=== PATIENT | male | born 1955 | race Caucasian/White ===

== ENCOUNTER 2023-09-30 11:02 | Day surgery (SDC) | payer MEDICARE ==
[~2023-09-30] VITALS: Ht 172.7 cm; Wt 77.3 kg
[~2023-09-30 11:02] MED LIST: ASPIR 8181 MG PO; ASPIRIN EC325 MG PO; ASPIRIN81 MG PO; ATORVASTATIN CA10 MG PO; CELECOXIB200 MG PO; CIALIS5 MG PO; CO Q-10 100 MG1 EACH PO; CO Q-1010 MG PO; DILTIAZEM 24HR120 MG PO; ELIQUIS5 MG PO; FLOMAX0.4 MG PO; GABAPENTIN600 MG PO; HEALTHYLAX17 GM PO; MULTIVITAMIN W1 EACH PO; OXYCODONE HCL5 MG PO; SENNA LAX8.6 MG PO; SILDENAFIL20 MG PO; TAMSULOSIN HCL0.4 MG PO; TOPROL XL50 MG PO; TYLENOL EXTRA500 MG PO
[2023-09-30 11:20] VITALS: BP 134/76
--- NOTE | 2023-09-30 13:42 | NUR ---
09/30/23 1342 Sheets,Allison 1306 PT ARRIVED TO PACU ON 3L VIA MASK. PT AWAKE AND TALKING TO RN. VSS. 1312 MD AT BEDSIDE TALKING TO PT. 1316 O2 REMOVED. PT DROWSY AND DENIES COCNERNS. 1325 PT ASLEEP AND O2 90%.
[2023-09-30 13:45] VITALS: BP 106/74
--- NOTE | 2023-10-01 16:28 | OR ---
[facility] [address], [place] [address] Signed DATE OF OPERATION: 09/30/2023 SURGEON: Ewelina Segal MD PREOPERATIVE DIAGNOSES: 1. Colon screening. 2. Family history of colon cancer (mother). POSTOPERATIVE DIAGNOSIS: Normal colon to cecum. PROCEDURE: Total colonoscopy to cecum. ANESTHESIA: Intravenous sedation fentanyl 100 mcg and Versed 5 mg. INDICATION: This 68-year-old white man is patient of Dr. Ole Palomo as well as HILLARY Arora. He underwent colonoscopy in 5 years ago in 2018, which was normal. He has family history of colon cancer in his mother. He currently has no symptoms of bleeding, diarrhea or constipation. He does take Eliquis for history of atrial fibrillation, having undergone atrial ablation. He is admitted to undergo surveillance colonoscopy at this time. He understands the risk of bleeding, infection, and perforation. FINDINGS: The prep was excellent. Complete colonoscopy was undertaken to the cecum without question. He had no evidence of polyps, diverticular formation, colitis, or cancer. PROCEDURE IN DETAIL: The patient was brought to the endoscopy suite and placed in lateral decubitus position, given intravenous sedation to the point of slurred speech and nystagmus. Digital rectal examination was normal. An Olympus video colonoscope was passed in the rectum and manipulated throughout the colon ultimately intubating the cecum itself. The ileocecal valve and appendiceal orifice were normal. Scope was withdrawn from that point and examination throughout showed no sign of abnormality specifically no polyps, diverticular formation, colitis, or cancer. Retroflexed view of the rectum was normal as well. The scope was removed Electronically Signed By: EWELINA SEGAL MD 10/01/23 1628 PATIENT NAME: MATTHEW PALOMO OPERATIVE REPORT DATE OF : 57 REPORT #: [id number] PHYSICIAN: EWELINA SEGAL MD PCP: OLE PALOMO MD REPORT IS CONFIDENTIAL AND NOT TO BE RELEASED WITHOUT AUTHORIZATION [facility] [address], [place] [address] Signed and the patient was taken to the recovery room in good condition. CONCLUDING DIAGNOSIS: Normal colon to cecum. PLAN: Recommend repeat colonoscopy in 5 years based on family history of colon cancer in his mother, sooner if symptoms should develop. He will return to the ongoing care of Dr. Ole Palomo and HILLARY Arora. MD BERENICE Hinds/MODL /[id number] cc: MD Hemalatha Wynne PA Copies: OLE PALOMO DMD ~ Electronically Signed By: EWELINA SEGAL MD 10/01/23 1628 PATIENT NAME: MATTHEW PALOMO OPERATIVE REPORT DATE OF : 57 REPORT #: [id number] PHYSICIAN: EWELINA SEGAL MD PCP: OLE PALOMO MD REPORT IS CONFIDENTIAL AND NOT TO BE RELEASED WITHOUT AUTHORIZATION
== END 2023-09-30 13:57 | disposition home or self-care (01) ==
LOC: DS 11:02 → OPS 11:02 → DS 13:00 → OPS 13:00
PROVIDERS: ATTEND Surgery
PROC: 0DJD8ZZ Inspection of Lower Intestinal Tract, Via Natural or Artificial Opening Endoscopic (ICD-10-PCS; principal; 2023-09-30 11:45)
DX: Z12.11 Encounter for screening for malignant neoplasm of colon (principal); Z80.0 Family history of malignant neoplasm of digestive organs; I48.20 Chronic atrial fibrillation, unspecified; E11.9 Type 2 diabetes mellitus without complications; Z96.642 Presence of left artificial hip joint; Z79.82 Long term (current) use of aspirin; Z79.899 Other long term (current) drug therapy
CPT/HCPCS: 99153; G0500; J0690; J2250; J3010; J7121

== ENCOUNTER 2024-07-22 21:09 | Emergency (ER) | payer MEDICARE, OTHER ==
[~2024-07-22] VITALS: Ht 172.7 cm; Wt 78.0 kg
[2024-07-22 22:00] LABS: BASOPHILS 0.4 % (0-2); EOSINOPHILS 0.2 % (0-6); HEMATOCRIT 43.8 % (35.0-50.0); HEMOGLOBIN 14.8 g/dL (12.0-18.0); LYMPHOCYTES 8.7 % (24-44); MCH 31.2 (27-36); MCHC 33.8 g/dl (30-36); MCV 92.3 fl (81-99); MONOCYTES 5.2 % (0-12); NEUTROPHILS 85.5 % (39-80); PLATELET COUNT 191 K/uL (140-440); RBC 4.74 M/ul (4.3-5.7)
[2024-07-22 22:15] LABS: ALBUMIN 3.5 g/dL (3.4-5.0); ALBUMIN/GLOBULIN RATIO 0.9 (1.1-2.4); ANION GAP 13.2 (7-21); BILIRUBIN, TOTAL 0.7 ng/dL (0.2-1.0); BUN/CREATININE RATIO 20.61 (6.0-28.6); CALCIUM 9.3 mg/dL (8.5-10.1); CREATININE, SERUM 0.97 mg/dL (0.70-1.30); POTASSIUM 4.2 mmol/L (3.5-5.1); PROTEIN, TOTAL 7.4 g/dL (6.4-8.2)
[2024-07-22 22:58] LABS: BILIRUBIN, URINE NEGATIVE (negative); BLOOD/HGB, URINE NEGATIVE (Negative); KETONE, URINE >=80 (Negative); LEUK ESTERASE, URINE NEGATIVE (negative); NITRITE, URINE NEGATIVE (negative)
[2024-07-23] MEDS ORDERED: HYDROCODON-ACE1 EA10 PO (00:25)
[2024-07-23] MEDS ORDERED: ONDANSETRON 4 MG HOME.PACK SL ONE (00:30)
[2024-07-23] MEDS ORDERED: HYDROCODONE BIT/ACETAMINOPHEN 5/325 MG 1 TAB HOME.PACK PO PRN (00:30)
[2024-07-23 00:45] VITALS: BP 143/89
== END 2024-07-23 00:45 | disposition home or self-care (01) ==
LOC: ED 21:09
PROVIDERS: Emergency Medicine
DX: K85.90 Acute pancreatitis without necrosis or infection, unspecified (principal); Z91.013 Allergy to seafood
CPT/HCPCS: 36415; 74177; 80053; 81003; 83690; 85025; 99284-25; A9270; Q9967